=== PATIENT | male | born 1990 | race Caucasian/White ===

== ENCOUNTER 2017-11-14 19:43 | Emergency (ER) | payer OTHER ==
[2017-11-14 20:40] LABS: Basophils # (A) 0.1 k/uL (0-0.2); Basophils % (A) 1 %; Eosinophils # (A) 0.6 k/uL (0-0.7); Eosinophils % (A) 6 %; HCT 48.7 % (39.0-53.0); HGB 15.2 gm/dL (13.0-17.5); Lymphocytes # (A) 2.9 k/uL (1.0-4.8); Lymphocytes % (A) 31 %; MCH 29.1 pg (25.0-35.0); MCHC 31.3 g/dL (31.0-37.0); MCV 93.1 fL (80.0-100.0); Mean Platelet Volume 6.9; Monocytes # (A) 0.4 k/uL (0-1.0); Monocytes % (A) 4 %; Neutrophils # (A) 5.3 k/uL (1.3-7.7); Neutrophils % (A) 57 %; Platelet Count 305 k/uL (150-450); RBC 5.23 m/uL (4.30-5.90); RDW 12.6 % (11.5-15.5); WBC 9.4 k/uL (3.8-10.6)
[2017-11-14 20:48] LABS: INR 1.1 (<1.2); Partial Thromboplastin Time 25.4 sec (22.0-30.0); Prothrombin Time 10.3 sec (9.0-12.0)
[2017-11-14 20:49] LABS: ALT 29 U/L (21-72); AST 30 U/L (17-59); Albumin 4.7 g/dL (3.5-5.0); Alkaline Phosphatase 58 U/L (38-126); Anion Gap 8 mmol/L; Blood Urea Nitrogen 14 mg/dL (9-20); Calcium 9.9 mg/dL (8.4-10.2); Carbon Dioxide 29 mmol/L (22-30); Chloride 105 mmol/L (98-107); Glucose 87 mg/dL (74-99); Potassium 4.5 mmol/L (3.5-5.1); Sodium 142 mmol/L (137-145); Total Bilirubin 0.3 mg/dL (0.2-1.3); Total Protein 8.1 g/dL (6.3-8.2)
[2017-11-14 20:55] LABS: Creatine Kinase 133 U/L (55-170)
[2017-11-14 21:07] LABS: Creatine Kinase MB 0.7 ng/mL (0.0-2.4); Troponin I <0.012 ng/mL (0.000-0.034)
--- NOTE | 2017-11-14 22:18 | ED ---
Chest Pain HPI - General Chief Complaint: Chest Pain Stated Complaint: Chest Pain Time Seen by Provider: 11/14/17 22:11 Source: patient Mode of arrival: ambulatory Limitations: no limitations - History of Present Illness Initial Comments: This patient is a 27-year-old man who states that he is here to be seen about a number of symptoms as well as anxiety. The patient feels that he is having a difficult time coping with his current situation. 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 He states that he is having a difficult time focusing on tasks and will often start something, and then when he goes to start something else and not finishing either of the tasks that he intended to do. He states that there is been increasing anxiety and associated with anxiety he will have some chest tightness which is what he had described in triage and occasionally some shortness of breath with chest tightness. The symptoms have been going on for over 3 weeks now. MD Complaint: chest pain Onset/Timin -: week(s) Onset: during rest Pain Location: left chest, right chest Severity: mild Quality: tightness Consistency: intermittent Improves With: nothing Worsens With: other (Anxiety) Treatments Prior to Arrival: other (Patient states that he tried a family members Xanax yesterday without any relief.) - Related Data Home Medications Medication Instructions Recorded Confirmed Ibuprofen [Motrin Ib] 600 mg PO Q6H PRN 11/14/17 11/14/17 Allergies Allergy/AdvReac Type Severity Reaction Status Date / Time No Known Allergies Allergy Verified 11/14/17 22:39 Review of Systems ROS Statement: Those systems with pertinent positive or pertinent negative responses have been documented in the HPI. ROS Other: All systems not noted in ROS Statement are negative. Constitutional: Denies: fever, chills Respiratory: Denies: cough, dyspnea Cardiovascular: Reports: as per HPI, chest pain. Denies: palpitations Gastrointestinal: Denies: abdominal pain, nausea, vomiting Musculoskeletal: Denies: back pain Skin: Denies: rash Neurological: Denies: headache, weakness, numbness Psychiatric: Reports: as per HPI, anxiety. Denies: depression, auditory hallucinations, homicidal thoughts, suicidal thoughts EKG Findings - EKG Results: EKG: interpreted by ERMD, WNL, sinus rhythm (With sinus arrhythmia at rate 70 bpm), normal axis, normal QRS, normal ST/T, no acute changes - ID, Pacemaker, Normal: Normal tracing: normal tracing Past Medical History Past Medical History: No Reported History History of Any Multi-Drug Resistant Organisms: None Reported Past Surgical History: Tonsillectomy Past Psychological History: No Psychological Hx Reported Smoking Status: Current every day smoker Past Alcohol Use History: Occasional Past Drug Use History: None Reported General Exam Limitations: no limitations General appearance: alert, in no apparent distress Head exam: Present: atraumatic, normocephalic Eye exam: Present: normal appearance. Absent: scleral icterus, conjunctival injection ENT exam: Present: normal oropharynx Respiratory exam: Present: normal lung sounds bilaterally. Absent: respiratory distress, wheezes, rales, rhonchi, stridor Cardiovascular Exam: Present: regular rate, normal rhythm, normal heart sounds. Absent: systolic murmur, diastolic murmur, rubs, gallop GI/Abdominal exam: Present: soft. Absent: tenderness, guarding, rebound, mass Extremities exam: Present: normal inspection, normal capillary refill. Absent: pedal edema, calf tenderness Back exam: Present: normal inspection, full ROM Neurological exam: Present: alert, oriented X3, normal gait Psychiatric exam: Present: anxious. Absent: depressed, agitated, homicidal ideation, suicidal ideation Skin exam: Present: warm, dry, intact, normal color. Absent: rash Course Vital Signs 11/14/17 11/15/17 20:14 00:08 Temperature 97.9 F 97.8 F Pulse Rate 71 54 L Respiratory 20 18 Rate Blood Pressure 153/89 119/69 O2 Sat by Pulse 100 98 Oximetry Disposition Clinical Impression: Anxiety Disposition: HOME SELF-CARE Condition: Good Instructions: Anxiety (ED) Is patient prescribed a controlled substance at d/c from ED?: No Referrals: None,Stated [Primary Care Provider] - 1-2 days Adriana Gilmore MD [Medical Doctor] - 1-2 days
[2017-11-15 00:09] VITALS: RESP 18
[2017-11-15 00:31] VITALS: BP 124/88; PULSE 78; TEMP 98.4
== END 2017-11-15 00:31 | disposition home or self-care (01) ==
LOC: EC 19:43
DX: F41.9 Anxiety disorder, unspecified (principal); R07.89 Other chest pain; R06.02 Shortness of breath; F17.200 Nicotine dependence, unspecified, uncomplicated
CPT/HCPCS: 36415; 80053; 82550; 82553; 84443; 84484; 85025; 85610; 85730; 93005; 99285

== ENCOUNTER 2020-01-20 17:44 | Emergency (ER) | payer OTHER ==
[2020-01-20 17:53] VITALS: BP 134/79; PULSE 66; RESP 18; TEMP 97.9
[2020-01-20] MEDS ORDERED: DIPH,PERTUS(ACELL)TETVAC-LF 0.5 ML VIAL IM ONE (18:06)
--- NOTE | 2020-01-20 18:09 | ED ---
General Adult HPI - General Chief complaint: Extremity Injury, Lower Stated complaint: stepped on nail post 3 days Time Seen by Provider: 01/20/20 18:01 Source: patient, RN notes reviewed Mode of arrival: ambulatory Limitations: no limitations - History of Present Illness Initial comments: 29-year-old male presents to the emergency room for a chief complaint of requiring tetanus update. Patient reports he stepped on a nail 4 days ago. States at first it was painful however now his foot feels acting normal. He denies any swelling or redness. Denies any drainage. States he can no longer see where the puncture occurred. Patient denies fevers or chills. Patient states he is only here today because he realized he is not up-to-date on his tetanus immunization.Patient has no other complaints at this time including shortness of breath, chest pain, abdominal pain, nausea or vomiting, headache, or visual changes. - Related Data Home Medications Medication Instructions Recorded Confirmed Ibuprofen [Motrin Ib] 600 mg PO Q6H PRN 11/14/17 11/14/17 Previous Rx's Medication Instructions Recorded Permethrin 5% Cream [Elimite] 1 applic TOPICAL ONCE #1 tube 10/25/19 Allergies Allergy/AdvReac Type Severity Reaction Status Date / Time No Known Allergies Allergy Verified 01/20/20 17:53 Review of Systems ROS Statement: Those systems with pertinent positive or pertinent negative responses have been documented in the HPI. ROS Other: All systems not noted in ROS Statement are negative. Past Medical History Past Medical History: No Reported History History of Any Multi-Drug Resistant Organisms: None Reported Past Surgical History: Tonsillectomy Past Psychological History: No Psychological Hx Reported Smoking Status: Never smoker Past Alcohol Use History: Occasional Past Drug Use History: Marijuana General Exam Limitations: no limitations General appearance: alert, in no apparent distress Head exam: Present: atraumatic, normocephalic, normal inspection Eye exam: Present: normal appearance ENT exam: Present: normal exam, mucous membranes moist Neck exam: Present: normal inspection. Absent: tenderness, meningismus, lymphadenopathy Respiratory exam: Present: normal lung sounds bilaterally. Absent: respiratory distress, wheezes, rales, rhonchi, stridor Cardiovascular Exam: Present: regular rate, normal rhythm, normal heart sounds. Absent: systolic murmur, diastolic murmur, rubs, gallop, clicks Extremities exam: Present: normal capillary refill (Capillary refill less than 2 seconds, DP pulse 2+ in the right lower extremity.). Absent: other (No erythema edema or laceration noted to the plantar aspect of the right foot. No evidence of infection. No evidence of laceration or puncture at this time.) Course Vital Signs 01/20/20 17:51 Temperature 97.9 F Pulse Rate 66 Respiratory 18 Rate Blood Pressure 134/79 O2 Sat by Pulse 98 Oximetry Medical Decision Making - Medical Decision Making At this time no signs of infection, patient not requiring antibiotic therapy as we would already suspect symptoms of infection after 4 days status post puncture wound. Patient was updated on tetanus. Patient will watch for signs of infection and I did discuss returning if these occur. He is agreeable. He will otherwise follow-up with his doctor. I discussed this case with attending Dr. Ugarte who agrees with this assessment and treatment plan. Disposition Clinical Impression: Tetanus toxoid vaccination administered at current visit Disposition: HOME SELF-CARE Condition: Good Instructions (If sedation given, give patient instructions): Puncture Wound (ED) Additional Instructions: Please monitor for any signs of infection such as redness, swelling, fever, or increased pain. If these occur return to the emergency room. Otherwise follow- up with your doctor. Is patient prescribed a controlled substance at d/c from ED?: No Referrals: Aura Wilson MD [REFERRING] - 1-2 days Time of Disposition: 18:08
== END 2020-01-20 18:15 | disposition home or self-care (01) ==
LOC: EC 17:44
DX: Z23 Encounter for immunization (principal); W45.0XXA Nail entering through skin, initial encounter
CPT/HCPCS: 90471; 90715; 99281